=== PATIENT | male | born 1985 | race Caucasian/White ===

== ENCOUNTER 2019-04-13 10:50 | Emergency (ER) | payer OTHER ==
[~2019-04-13] VITALS: Ht 175.3 cm; Wt 111.1 kg
== END 2019-04-13 15:17 | disposition home or self-care (01) ==
LOC: ER 10:50
DX: R00.2 Palpitations (principal); F06.4 Anxiety disorder due to known physiological condition

== ENCOUNTER 2022-09-03 19:04 | Emergency (ER) | payer OTHER ==
[~2022-09-03] VITALS: Ht 175.3 cm; Wt 99.8 kg
[2022-09-03] MEDS ORDERED: PANTOPRAZOLE SO40 MG (19:44)
[2022-09-03] MEDS ORDERED: FAMOTIDINE20 MG PO (19:44)
[2022-09-03] MEDS ORDERED: KETO10TA2 PO (20:48)
[2022-09-03] MEDS ORDERED: CIPRO500 MG PO (20:48)
== END 2022-09-03 21:38 | disposition home or self-care (01) ==
LOC: ER 19:04
DX: S91.331A Puncture wound without foreign body, right foot, initial encounter (principal); W45.8XXA Other foreign body or object entering through skin, initial encounter; Y93.01 Activity, walking, marching and hiking; Y92.096 Garden or yard of other non-institutional residence as the place of occurrence of the external cause